=== PATIENT | female | born 1960 | race Caucasian/White ===

== ENCOUNTER → 2020-06-24 | Outpatient (CLI) | payer OTHER ==
--- NOTE | 2020-06-24 11:44 | US ---
EXAMINATION TYPE: US venous doppler duplex LE RT DATE OF EXAM: 06/24/2020 11:19 AM COMPARISON: NONE CLINICAL HISTORY: 60-year-old female I80.9 Phlebitis and thrombophlebitis of unspecified. SIDE PERFORMED: Right TECHNIQUE: The lower extremity deep venous system is examined utilizing real time linear array sonog jam with graded compression, doppler sonography and color-flow sonography. FINDINGS: VESSELS IMAGED: Common Femoral Vein Deep Femoral Vein Greater Saphenous Vein * Femoral Vein Popliteal Vein Small Saphenous Vein * Proximal Calf Veins (* superficial vessels) Right Leg: Negative for DVT [employer] Supervisor notes: At lump along the anterior right calf just below the knee is probable hematoma raf suring 2.2cm IMPRESSION: 1. No evidence for DVT within the right lower extremity imaged from the groin to the upper calf. 2. Palpable site just below the knee shows a heterogeneous fluid collection measuring 2.2 cm, possibl e hematoma. Correlate with patient's signs/symptoms to exclude abscess. Ultrasound and clinical follo w-up recommended to ensure involution.
== END | disposition home or self-care (01) ==
LOC: RADUSWWP 10:56
PROVIDERS: ATTEND Orthopaedic Surgery
DX: R93.7 Abnormal findings on diagnostic imaging of other parts of musculoskeletal system (principal)